=== PATIENT | female | born 1960 | race Caucasian/White ===

== ENCOUNTER → 2019-12-16 11:17 | Outpatient (CLI) | payer BC, SELFPAY ==
--- NOTE | ~2019-12-16 | US_ITS ---
EXAMINATION: US transvaginal DATE: 12/16/2019 11:42 INDICATION: Right lower quadrant abdominal pain Comparison:No prior studies for comparison. TECHNIQUE: Multiple endovaginal sonographic images of the pelvis performed. FINDINGS: The uterus is surgically absent. The ovaries are not visualized. No adnexal masses or fluid collections. There is no free fluid in the pelvis. There are no abnormal masses seen on either side. IMPRESSION: 1. Unremarkable pelvic ultrasound post hysterectomy. Reviewed, dictated and finalized at location A.
== END ==
PROVIDERS: PCP Physician Assistant; Visit Provider Physician Assistant
DX: R10.31 Right lower quadrant pain (principal)
CPT/HCPCS: 76830

== ENCOUNTER 2020-02-18 12:14 | Outpatient (CLI) | payer BC, SELFPAY ==
--- NOTE | ~2020-02-18 | MM_ITS ---
EXAMINATION: MM screening sallie BI w castillo HISTORY: Screening TECHNIQUE: Craniocaudal and mediolateral oblique 3-D tomosynthesis images were obtained and synthetic 2-D images were generated. CAD analysis was submitted and interpreted. COMPARISON: Comparison to multiple prior studies sequentially, with oldest reviewed study dated 08/07. BREAST PARENCHYMAL COMPOSITION: There are scattered areas of fibroglandular density. FINDINGS: There is no evidence of suspicious mass, calcification, or architectural distortion to sugg est malignancy in either breast. There has been no suspicious interval change. IMPRESSION: 1. No mammographic evidence of malignancy. 2. Recommend routine screening mammography in one year. BI-RADS Category 1: Negative Reviewed, dictated and finalized at location A. [employer]
== END 2020-02-18 12:15 | disposition home or self-care (01) ==
LOC: ANHIMG 12:17
PROVIDERS: PCP Physician Assistant; Visit Provider Physician Assistant
DX: Z12.31 Encounter for screening mammogram for malignant neoplasm of breast (principal)
CPT/HCPCS: 77063; 77067

== ENCOUNTER → 2021-10-28 16:19 | Outpatient (CLI) | payer SELFPAY ==
--- NOTE | ~2021-10-28 | XR_ITS ---
EXAMINATION:XR_[id number]_CR DATE: 10/28/2021 16:52 INDICATION: Neck pain TECHNIQUE: AP, lateral, lateral swimmers and odontoid views of the cervical spine are provided. COMPARISON: None FINDINGS: Mild reversal of the normal lordosis in the mid cervical spine. Vertebral body heights are normal. Mo derate disc height loss with posterior endplate osteophytes resulting in mild central canal stenosis at C4-C5 and C5-C6. Mild disc height loss at C3-C4 and C6-C7. Moderate uncovertebral osteoarthritis b ilaterally at C3-C4, C4-C5 and on the right at C5-C6. Minimal to mild facet osteoarthritis with mid t o lower lumbar predominance. Odontoid is intact. Normal atlantoaxial interval. Prevertebral soft tis sues are normal. IMPRESSION: 1. Moderate cervical spondylosis. Reviewed, dictated and finalized at location A.
== END ==
PROVIDERS: PCP Physician Assistant; Visit Provider Physician Assistant
DX: M47.892 Other spondylosis, cervical region (principal)
CPT/HCPCS: 72040